=== PATIENT | male | born 1950 | race Caucasian/White ===

== ENCOUNTER 2016-11-04 15:13 | Emergency (ER) | payer MEDICARE, OTHER ==
[~2016-11-04] VITALS: Ht 170.2 cm; Wt 110.2 kg
[2016-11-04] MEDS ORDERED: SOD CHLORIDE 0.9% 1,000 ML IV STA (15:30)
[2016-11-04] MEDS ORDERED: ASPIRIN 300 MG SUPP PR STA (15:30)
[2016-11-04 15:40] VITALS: Ht 170.2 cm; Wt 110.2 kg
[2016-11-04 15:41] LABS: ADD SCAN DIFF NO
[2016-11-04 15:45] LABS: BASOPHILS % 0.3 % (0.0-2.0); EOSINOPHILS # 0.1 10^3/ul (0.0-0.5); EOSINOPHILS % 0.4 % (0.0-7.0); HEMATOCRIT 42.4 % (42.0-52.0); HEMOGLOBIN 14.1 g/dl (14.0-18.0); LYMPHOCYTES # 2.1 10^3/ul (0.8-2.9); LYMPHOCYTES % 17.7 % (15.0-51.0); MEAN CORPUSCULAR HEMOGLOBIN 29.2 pg (29.0-33.0); MEAN CORPUSCULAR HGB CONC 33.3 g/dl (32.0-37.0); MEAN CORPUSCULAR VOLUME 87.8 fl (82.0-101.0); MEAN PLATELET VOLUME 10.1 fl (7.4-10.4); MONOCYTE # 0.7 10^3/ul (0.3-0.9); MONOCYTES % 5.8 % (0.0-11.0); NEUTROPHIL # 8.8 10^3/ul (1.6-7.5); NEUTROPHILS % 75.4 % (39.0-77.0); PLATELET COUNT 316 10^3/UL (140-415); RED BLOOD COUNT 4.83 10^6/ul (4.70-6.10); RED CELL DISTRIBUTION WIDTH 13.6 % (11.5-14.5); WHITE BLOOD COUNT 11.7 10^3/ul (4.8-10.8)
--- NOTE | 2016-11-04 15:51 | RADRPT ---
PROCEDURE: CT Brain without contrast. CLINICAL INDICATION: Right-sided weakness. Code stroke. TECHNIQUE: A CT of the brain without contrast was performed utilizing axial sections from the skul l base through the vertex. The patient was scanned without intravenous contrast enhancement. Sagitta l and coronal reformatted images were obtained using the data from the axial images. Total exam DLP is 720.23 mGy-cm. CTDIvol is 43.48 mGy. One or more of the following dose reduction techniques we re used: Automated exposure control, adjustment of the mA and/or kV according to patient size, use o f iterative reconstruction technique. COMPARISON: None available FINDINGS: There is subtle decreased attenuation and loss of mccarthy and white matter differentiation in the left basal ganglia. The mccarthy and white matter differentiation is otherwise normal. There is mild enlargement of the ventricles and subarachnoid spaces consistent with atrophy. Vascul ar calcifications are present consistent with atherosclerosis. There is no intracranial hemorrhage or space-occupying lesion. There is no skull fracture or lytic lesion. IMPRESSION: 1. Subtle decreased attenuation and loss of mccarthy and white matter differentiation in the left basal ganglia. This may indicate acute infarct. Clinical correlation advised. Correlation with MRI with diffusion weighted images is advised. 2. Mild atrophy. 3. Atherosclerosis. Call report: A call report of the findings was made to Dr. Adamson on 11/04/2016 at 1550 hours. RPTAT: QQ .Anthony Stacy MD, Date Time Electronically viewed and signed by .Anthony Stacy MD, on 11/04/2016 15:51 .R/
[2016-11-04 16:00] LABS: INR 0.94; PARTIAL THROMBOPLASTIN TIME 31.8 Sec (25.0-35.0); PROTIME 12.6 Sec (12.2-14.2)
[2016-11-04] MEDS ORDERED: ALTEPLASE (tPA) 1 MG/ML BOLUS SYG IV* ONE (16:00)
[2016-11-04] MEDS ORDERED: SOD CHLORIDE 0.9% 50 ML IV ONE (16:00)
[2016-11-04] MEDS ORDERED: ALTEPLASE 100 MG INJ IV* ONE (16:00)
[2016-11-04 16:06] LABS: ALANINE AMINOTRANSFERASE 30 IU/L (13-69); ALBUMIN 4.7 g/dl (3.3-4.9); ALBUMIN/GLOBULIN RATIO 1.42; ALKALINE PHOSPHATASE 92 IU/L (42-121); ANION GAP 12 (8-16); ASPARTATE AMINO TRANSFERASE 16 IU/L (15-46); BILIRUBIN,INDIRECT 0.6 mg/dl (0-1.1); BILIRUBIN,TOTAL 0.6 mg/dl (0.2-1.3); BLOOD UREA NITROGEN 14 mg/dl (7-20); CALCIUM 9.4 mg/dl (8.4-10.2); CARBON DIOXIDE 21 mmol/L (21-31); CHLORIDE 110 mmol/L (97-110); CREATININE 0.85 mg/dl (0.61-1.24); GLUCOSE 121 mg/dl (70-220); POTASSIUM 3.8 mmol/L (3.5-5.1); SODIUM 139 mmol/L (135-144)
[2016-11-04 16:24] LABS: TROPONIN-I < 0.012 ng/ml (0.00-0.12)
[2016-11-04] MEDS ORDERED: IOHEXOL 100 ML ONE (17:05)
[2016-11-04] MEDS ORDERED: IOHEXOL 350MG/ML 50 ML BTL ONE (17:05)
[2016-11-04] MEDS ORDERED: SOD CHLORIDE 0.9% 100 ML ONE (17:05)
--- NOTE | 2016-11-04 17:25 | ERA ---
ER Documentation Chief Complaint Date/Time DATE: 11/04/16 TIME: 17:10 Chief Complaint PERIOD OF ALTERED MENTAL STATUS PER DAUGHTER AFTER SOME ETOH, NO NEURO DEF HPI 66-year-old man brought in by EMS for abrupt onset dysarthria beginning about 45 minutes prior to arrival. The episode was witnessed by his friends who know him very well, it seems he also developed a right facial asymmetry and generalized obtundation but did not lose consciousness. He has no history of similar episodes, no vomiting, no chest pain or shortness of breath, no headache or blurry vision. His friends immediately called family members and EMS was contacted and transported here immediately. Upon arrival blood sugar was normal, and patient had continued symptoms. He has a history of hypertension and tobacco smoke. ROS All systems reviewed and are negative except as per history of present illness. Medications Home Meds No Active Prescriptions or Reported Meds Allergies Allergies: Coded Allergies: No Known Allergy (Unverified , 11/04/16) PMhx/Soc Obesity, hypertension, tobacco smoke History of Surgery: Yes (APPY) Anesthesia Reaction: No Hx Neurological Disorder: No Hx Respiratory Disorders: No Hx Cardiac Disorders: No Hx Psychiatric Problems: No Hx Miscellaneous Medical Probl: Yes (SHINGLES) Hx Alcohol Use: Yes (OCCASIONAL) Hx Substance Use: No Hx Tobacco Use: Yes (1 PACK/DAY) Smoking Status: Current every day smoker FmHx Family History: No diabetes Physical Exam Vitals Vital Signs Date Time Temp Pulse Resp B/P Pulse Ox O2 Delivery O2 Flow Rate FiO2 11/04/16 18:15 69 20 143/76 96 11/04/16 18:00 68 18 127/65 98 11/04/16 17:45 98.0 68 21 121/71 97 Nasal Cannula 2.0 11/04/16 17:45 67 16 127/71 98 11/04/16 17:30 67 22 135/87 95 11/04/16 17:30 98.6 65 19 125/70 98 Nasal Cannula 2.0 11/04/16 17:15 78 20 111/78 98 11/04/16 17:15 98.8 75 20 111/78 98 Nasal Cannula 2.0 11/04/16 17:00 72 21 110/68 96 11/04/16 17:00 98.6 62 21 110/68 96 11/04/16 16:45 98.7 68 18 123/66 97 Nasal Cannula 2.0 11/04/16 16:45 67 22 123/66 97 11/04/16 16:30 66 22 125/73 96 11/04/16 15:45 Nasal Cannula 2 11/04/16 15:19 98.8 77 21 121/77 95 Physical Exam GENERAL: Well-developed, well-nourished, generalized obtundation HEENT: Moist mucous membranes, pink conjunctiva, no cervical spine tenderness or step-off deformities, no goiter, no jaundice or icterus, extraocular movements intact without pain. No submandibular induration, and no pharyngeal erythema NEURO: Patient is obtunded, answers simple questions and follow simple commands he has right facial weakness and asymmetrical compared to the left, he has expressive dysarthria and aphasia, pupils equal round reactive to light, extraocular movements intact without difficulty, no nystagmus, no cerebellar signs, no pronator drift CARDIAC: Regular rate and rhythm, no murmurs rubs or gallops LUNGS: Clear bilaterally no wheezing crackles or stridor ABDOMEN: Soft nontender, no guarding, no rigidity, no rebound, no psoas sign no obturator sign. Normoactive bowel sounds SKIN: Warm and dry to touch, no abrasions, contusions, or hematomas, no lacerations, no ecchymosis, no target lesions, and without ulcers EXTREMITIES: No clubbing cyanosis or edema, calves are bilaterally symmetrical, no Homans sign, no popliteal cord sign. Distal pulses equal and bilateral PSYCH: Normal affect without agitation or irritability Result Diagram: 11/04/16 1540 11/04/16 1540 Results 24 hrs Laboratory Tests Test 11/04/16 15:32 11/04/16 15:40 Bedside Glucose 121mg/dL White Blood Count 11.710^3/ul Red Blood Count 4.8310^6/ul Hemoglobin 14.1g/dl Hematocrit 42.4% Mean Corpuscular Volume 87.8fl Mean Corpuscular Hemoglobin 29.2pg Mean Corpuscular Hemoglobin Concent 33.3g/dl Red Cell Distribution Width 13.6% Platelet Count 19088^3/UL Mean Platelet Volume 10.1fl Neutrophils % 75.4% Lymphocytes % 17.7% Monocytes % 5.8% Eosinophils % 0.4% Basophils % 0.3% Nucleated Red Blood Cells % 0.0/100WBC Neutrophils # 8.810^3/ul Lymphocytes # 2.110^3/ul Monocytes # 0.710^3/ul Eosinophils # 0.110^3/ul Basophils # 0.010^3/ul Nucleated Red Blood Cells # 0.010^3/ul Prothrombin Time 12.6Sec Prothrombin Time Ratio 1.0 INR International Normalized Ratio 0.94 Activated Partial Thromboplast Time 31.8Sec Sodium Level 139mmol/L Potassium Level 3.8mmol/L Chloride Level 110mmol/L Carbon Dioxide Level 21mmol/L Anion Gap 12 Blood Urea Nitrogen 14mg/dl Creatinine 0.85mg/dl Glucose Level 121mg/dl Hemoglobin A1c 5.9% Calcium Level 9.4mg/dl Total Bilirubin 0.6mg/dl Direct Bilirubin 0.00mg/dl Indirect Bilirubin 0.6mg/dl Aspartate Amino Transf (AST/SGOT) 16IU/L Alanine Aminotransferase (ALT/SGPT) 30IU/L Alkaline Phosphatase 92IU/L Troponin I < 0.012ng/ml Total Protein 8.0g/dl Albumin 4.7g/dl Globulin 3.30g/dl Albumin/Globulin Ratio 1.42 Ethyl Alcohol Level < 10.0mg/dl Current Medications Medications (Trade) Dose Ordered Sig/Hernando Route PRN Reason Start Time Stop Time Status Last Admin Dose Admin Sodium Chloride (NS) 1,000 ml @ 1,000 mls/hr Q1H STAT IV 11/04/16 15:30 11/04/16 16:29 DC 11/04/16 16:40 Aspirin (Aspirin) 300 mg ONCE STAT MA 11/04/16 15:30 11/04/16 15:32 DC 11/04/16 16:20 Alteplase, Recombinant (Activase) 8.6 mg BOLUS OVER 1 MIN ONCE IV* 11/04/16 16:00 11/04/16 16:01 DC 11/04/16 16:29 Alteplase, Recombinant 77 mg 77 mg ISCHEMIC STROKE ONCE IV* 11/04/16 16:00 11/04/16 16:01 DC 11/04/16 16:31 Sodium Chloride (NS) 50 ml @ 0 mls/hr FLUSH AFTER TPA ONCE IV 11/04/16 16:00 11/04/16 16:01 DC 11/04/16 17:30 IV Flush 10 ml 10 ml STK-MED ONCE .ROUTE 11/04/16 17:05 11/04/16 17:06 DC 11/04/16 17:38 Sodium Chloride 100 ml @ ud STK-MED ONCE .ROUTE 11/04/16 17:05 7 17:06 DC 11/04/16 17:38 Iohexol (Omnipaque) 100 ml @ ud STK-MED ONCE .ROUTE 11/04/16 17:05 11/04/16 17:06 DC 11/04/16 17:38 Iohexol (Omnipaque 350mg/ ml) 50 ml STK-MED ONCE .ROUTE 11/04/16 17:05 11/04/16 17:06 DC 11/04/16 17:38 Procedures/MDM IV line was established patient was placed on technical stenographer rhythm strip revealed a sinus rhythm at about 70 bpm with upright P and T waves. Patient was afebrile. Blood sugar was normal. Immediate code stroke was called. CT scan of the brain was performed revealing a possible acute infarct of the left basal ganglia consistent with his symptoms. Tele-neurologist was contacted and she evaluated the patient at the bedside. Her assessment was for definitive TPA treatment and possible transfer to a center with neuro interventional services. Her calculated NIHSS score was 2 for speech difficulty. My NIHSS score is 5, 1 for facial asymmetry, 2 points for aphasia and dysarthria , and 1 point for generalized decreased level of consciousness, and 1 for facial asymmetry. Patient was immediately administered TPA given his overall presentation and symptomatology as well as his CT scan findings. I spoke to the family at length regarding the risks and benefits of TPA, they thought about the decision and also discussed the risks and benefits of TPA separately with a tele-neurologist. They ultimately agreed to have TPA treatment, as did the patient, although we were ready to administer TPA 50 minutes after arrival the patient and his family required about 20 minutes to discuss the risks and benefits and make her decision. Patient also received aspirin 300 mg per rectum for neuroprotective measures. Bedside swallow study was performed. One AP view of the chest performed, read by me reveals no acute infiltrates, normal mediastinum, sharp costophrenic and cardiac borders, no air under the diaphragm. Otherwise unremarkable chest x-ray. CBC and electrolytes were normal, liver function tests normal, troponin was negative. Alcohol level was negative. EKG performed, read by me: 73 bpm, normal sinus rhythm, normal axis, no acute ST segment changes, narrow QRS complex, with good R-wave progression in precordial leads. CTA cerebrum and neck was performed to rule out acute ischemic pathology. Imaging revealed acute focal stenosis to the left internal carotid artery and occlusion of the left MCA. Please refer to radiologist dictation for full report. I spoke to [facility] stroke transfer center regarding this patient's presentation, symptomatology, NIH stroke scale score, and CT scan findings. They recommended emergent transfer for continued neurologic care and possible intervention, although unlikely. Family agreed to this transfer. [facility] agreed to facilitate the transfer. Neurologic critical Care: Time: 37 minutes, this was time separate from other billable procedures. Treatments/Evaluations: Close monitoring and treatment of unstable vital signs, cardiorespiratory, and neurologic status, while maintaining tight balance of fluid, respiratory, and cardiac interventions. 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
--- NOTE | 2016-11-04 17:30 | RADRPT ---
PROCEDURE: Chest Radiograph. CLINICAL INDICATION: Stroke TECHNIQUE: Single frontal chest radiograph. COMPARISON: None available FINDINGS: The cardiomediastinal silhouette is within normal limits. There is mild bibasilar atelectasis. No i nfiltrate or effusion is seen. The bones are intact. IMPRESSION: 1. No evidence of acute cardiopulmonary disease. 2. Mild bibasilar atelectasis. RPTAT: HJBF .Chon Ulloa MD, MD Date Time Electronically viewed and signed by .Chon Ulloa MD, on 11/04/2016 17:30 .B/
[2016-11-04 17:45] VITALS: BP 121/71; PULSE 68; RESP 21; TEMP 98
--- NOTE | 2016-11-04 18:05 | STROKE ---
Date/Time of Note Date/Time of Note DATE: 11/04/16 TIME: 16:26 Patient Information General Patient location: emergency Arrival Date Age 66 Gender male Weight 95 kg POC Glucose Glucose Result Bedside Glucose - 72 Hours Test 11/04/16 15:32 Bedside Glucose 121mg/dL (70-220) Vital Signs Vital Signs Vital Signs Date Time Temp Pulse Resp B/P Pulse Ox O2 Delivery O2 Flow Rate FiO2 11/04/16 15:45 Nasal Cannula 2 11/04/16 15:19 98.8 77 21 121/77 95 Patient History Current Medications Allergies: Coded Allergies: No Known Allergy (Unverified , 11/04/16) Labs Hematology Labs Hematology Test 11/04/16 15:40 White Blood Count 11.710^3/ul (4.8-10.8) Red Blood Count 4.8310^6/ul (4.70-6.10) Hemoglobin 14.1g/dl (14.0-18.0) Hematocrit 42.4% (42.0-52.0) Mean Corpuscular Volume 87.8fl (82.0-101.0) Mean Corpuscular Hemoglobin 29.2pg (29.0-33.0) Mean Corpuscular Hemoglobin Concent 33.3g/dl (32.0-37.0) Red Cell Distribution Width 13.6% (11.5-14.5) Platelet Count 77047^3/UL (140-415) Mean Platelet Volume 10.1fl (7.4-10.4) Neutrophils % 75.4% (39.0-77.0) Lymphocytes % 17.7% (15.0-51.0) Monocytes % 5.8% (0.0-11.0) Eosinophils % 0.4% (0.0-7.0) Basophils % 0.3% (0.0-2.0) Nucleated Red Blood Cells % 0.0/100WBC (0.0-0.0) Neutrophils # 8.810^3/ul (1.6-7.5) Lymphocytes # 2.110^3/ul (0.8-2.9) Monocytes # 0.710^3/ul (0.3-0.9) Eosinophils # 0.110^3/ul (0.0-0.5) Basophils # 0.010^3/ul (0.0-0.1) Nucleated Red Blood Cells # 0.010^3/ul (0.0-0.0) Chemistry Labs Chemistry Test 11/04/16 15:32 11/04/16 15:40 Bedside Glucose 121mg/dL (70-220) Sodium Level 139mmol/L (135-144) Potassium Level 3.8mmol/L (3.5-5.1) Chloride Level 110mmol/L (97-110) Carbon Dioxide Level 21mmol/L (21-31) Anion Gap 12 (8-16) Blood Urea Nitrogen 14mg/dl (7-20) Creatinine 0.85mg/dl (0.61-1.24) Glucose Level 121mg/dl (70-220) Hemoglobin A1c 5.9% (0-5.9) Calcium Level 9.4mg/dl (8.4-10.2) Total Bilirubin 0.6mg/dl (0.2-1.3) Direct Bilirubin 0.00mg/dl (0.00-0.20) Indirect Bilirubin 0.6mg/dl (0-1.1) Aspartate Amino Transf (AST/SGOT) 16IU/L (15-46) Alanine Aminotransferase (ALT/SGPT) 30IU/L (13-69) Alkaline Phosphatase 92IU/L (42-121) Troponin I < 0.012ng/ml (0.00-0.12) Total Protein 8.0g/dl (6.1-8.1) Albumin 4.7g/dl (3.3-4.9) Globulin 3.30g/dl (1.3-3.2) Albumin/Globulin Ratio 1.42 Coagulation Labs: Coagulation Test 11/04/16 15:40 Prothrombin Time 12.6Sec (12.2-14.2) Prothrombin Time Ratio 1.0 INR International Normalized Ratio 0.94 Activated Partial Thromboplast Time 31.8Sec (25.0-35.0) History & Physical Patient History Notes Pt Hx Reviewed History of Present Illness 66yo M presents with acute onset speech difficulty since 3:15pm. Review of Systems Constitutional: no symptoms reported EENTM: no symptoms reported Respiratory: no symptoms reported Cardiovascular: no symptoms reported Gastrointestinal: no symptoms reported Genitourinary: no symptoms reported Musculoskeletal: no symptoms reported Skin: no symptoms reported Psychiatric/Neurological: no symptoms reported All Other Systems: Reviewed and Negative NIH Stroke Scale NIH Stroke Scale 1A - Level of Conciousness: 0 - Alert keenly [id number] LOC Questions: 2 - Answers no [id number] - LOC Commands: 0 - Performs both tasks2 - Best Gaze: 0 - Normal3 - Visual: 0 - No visual loss4 - Facial Palsy: 1 - Partial [id number] - Motor Arm - Left: 0 - No epldt4B - Motor Arm - Right: 0 - No ykjvn4D - Motor Leg - Left: 0 - No bystp8O - Motor Leg - Right: 0 - No drift7 - Limb Ataxia: 0 - Absent8 - Sensory: 0 - Normal9 - Best Language: 1- Mild to moderate aphasiaDysarthria: 1 - Mild to [id number] - Extinction and inattentio: 0 - No abnormalityTotal Score: 3 Date/Time Recorded DATE: 11/04/16 TIME: 16:26 Submitted By Diana Beasley t-PA Imaging Review Imaging Reviewed: Yes Date/Time Imaging Reviewed DATE: 11/04/16 TIME: 16:26 Imaging Findings mild hypodensity seen in left basal ganglia suggestive of early infarction t-PA Administration Recommendation: Yes Weight 95 kg t-PA Recommendation Date/Time 11/04/16 16:15 Recommedation submitted by Diana Beasley Recommendations Impression Diagnosis acute ischemic stroke of the left middle cerebral artery Recommendation 66yo M presents with acute onset speech difficulty. Neurological exam is notable for moderate aphasia, moderate dysarthria, and mild right facial droop. I believe the patient is having an acute ischemic stroke of the left middle cerebral artery. I reviewed the risks and benefits of IV TPA in detail with the patient and his family and they are agreeable to my recommendation for IV TPA. I recommend post- TPA order sets be followed. I recommend stat CTA of the head and neck to determine if the patient is a neurointerventional candidate. I recommend further workup include MRI Brain without gadolinium and transthoracic echocardiogram. At 17:39 I reviewed the CTA images, report not yet available. I called and informed Dr. Adamson that patient appears to have an M1 occlusion within the left MCA and I recommend transfer for neurointerventional treatment. Post t-PA Order recommendation: Document q15 min vitals Document q15 min neuro checks Document q15 min bleeding checks Refer to t-PA Order Sets Diagnostic Labs: Lipid Proile Hgb A1C CMP CBC w/Diff Coags Therapy: Physical Therapy Speech Therapy Occupational Therapy Misc. Recommendations: Bedside Swallow Evaluation Pnumatic Compression Devices Avoid Breen Catheter Stroke Education Smoking Education DIANA BEASLEY Nov 04, 2016 16:46
--- NOTE | 2016-11-04 18:13 | RADRPT ---
PROCEDURE: CTA Head and Neck. CLINICAL INDICATION: Stroke, focal neurologic deficit TECHNIQUE: Continues axial 0.63 mm sections were obtained through the head and neck with the use o f 115 cc of Omnipaque 350 nonionic intravenous contrast material. Coronal and sagittal as well as m aximal intensity projection reformations were obtained. 3-D re-formations were performed as well. T he images were reviewed on a PACS workstation. The calculated radiation dose measures 799 mGy centim eters. The CTDI measures 29 mGy COMPARISON: No prior studies are available for comparison. FINDINGS: NECK: The aortic arch displays mild to moderate partially calcified plaque. The origins of the great vesse ls are intact. The right brachiocephalic artery is within normal limits. The right common carotid artery is unremarkable. The right carotid bifurcation demonstrates moderat e partially calcified plaque. There is 30% stenosis of the proximal right internal carotid artery.. The remainder of the right internal carotid artery is unremarkable, without focal stenosis or dila tation. The left common carotid artery is unremarkable. There is prominent plaque at the left carotid bifurc ation with occlusion just past the origin of the left internal carotid artery, which non opacificati on extending through to the cavernous left ICA. The bilateral vertebral arteries are identified, without stenosis or occlusion. HEAD: The petrous right internal carotid artery appears normally patent. The cavernous and supraclinoid r ight internal carotid artery segments demonstrate moderate calcification, and mild areas of vessel n arrowing.. The right middle cerebral artery appears normally patent. There is a partially azygos ap pearing configuration of the anterior cerebral artery, predominant supplied from the right side. There is opacification of the left petrous internal carotid artery. There is partial reconstitution through the left cavernous and supraclinoid internal carotid artery. There is thrombus seen at the level of the ICA terminus with associated occlusion of the left middle cerebral artery. There appe ars to be partial reconstitution of the distal left middle cerebral artery M1 segment and M2 arterie s. There is a left callosal marginal artery supplied through the left TONIO A1 segment, with possible diminished opacification. The anterior communicating artery is unremarkable. A left posterior communicating artery is normall y patent. A right posterior communicating artery is not well seen, likely small in size or hypoplas tic. There is no evidence of aneurysm or vascular malformation involving the anterior circulation. The intracranial vertebral arteries appear unremarkable. The basilar artery appears within normal l imits. . The superior cerebellar arteries are unremarkable. Bilateral posterior cerebral arteries are normally patent. There is no aneurysm or vascular malformation involving the posterior circulation.. There appears to be early hypodense changes in the left insula, frontal and parietal boyd radiata, and caudate head, consistent with early infarct involvement. IMPRESSION: 1. Occlusion of the left internal carotid artery, approximately 5 mm past the carotid bifurcation. There is non- opacification of the left ICA extending to the intracranial segment. 2. There is partial reconstitution of the left internal carotid artery at the level of the cavernou s segment. There is thrombus seen at the ICA terminus, with occlusion of the left middle cerebral a rtery at its origin. There is partial reconstitution of the distal left MCA M1 segment and M2 branc h arteries. There is possible diminished opacification of a left anterior cerebral artery callosal marginal artery. 3. Moderate plaque at the right carotid bifurcation with 30% stenosis of the proximal right ICA. 4. Normal patency of the bilateral vertebral arteries. 5. Moderate calcification of the right cavernous and supraclinoid internal carotid artery, with mil d associated vessel narrowing. 6. There appears to be early hypodense changes in the left MCA territory , including the left insul a, frontal and parietal boyd radiata, and caudate head. This appears consistent with early infarct involvement. Measurements of the cervical internal carotid artery stenosis were peformed according to NASCET surajt kentrell. Call report with critical findings made to Dr. Jacobsen RPTAT: AAEE .Jose Drake MD, MD Date Time Electronically viewed and signed by .Jose Drake MD, MD on 11/04/2016 18:12 .T/
--- NOTE | 2016-11-04 18:14 | RADRPT ---
PROCEDURE: CTA Head and Neck. CLINICAL INDICATION: Stroke, focal neurologic deficit TECHNIQUE: Continues axial 0.63 mm sections were obtained through the head and neck with the use of 115 cc of Omnipaque 350 nonionic intravenous contrast material. Coronal and sagittal as well as maxi mal intensity projection reformations were obtained. 3-D re-formations were performed as well. The i mages were reviewed on a PACS workstation. The calculated radiation dose measures 799 mGy centimeter s. The CTDI measures 29 mGy COMPARISON: No prior studies are available for comparison. FINDINGS: NECK: The aortic arch displays mild to moderate partially calcified plaque. The origins of the great vesse ls are intact. The right brachiocephalic artery is within normal limits. The right common carotid artery is unremarkable. The right carotid bifurcation demonstrates moderate partially calcified plaque. There is 30% stenosis of the proximal right internal carotid artery.. T he remainder of the right internal carotid artery is unremarkable, without focal stenosis or dilatat ion. The left common carotid artery is unremarkable. There is prominent plaque at the left carotid bifurc ation with occlusion just past the origin of the left internal carotid artery, which non opacificati on extending through to the cavernous left ICA. The bilateral vertebral arteries are identified, without stenosis or occlusion. HEAD: The petrous right internal carotid artery appears normally patent. The cavernous and supraclinoid ri ght internal carotid artery segments demonstrate moderate calcification, and mild areas of vessel na rrowing.. The right middle cerebral artery appears normally patent. There is a partially azygos appe aring configuration of the anterior cerebral artery, predominant supplied from the right side. There is opacification of the left petrous internal carotid artery. There is partial reconstitution through the left cavernous and supraclinoid internal carotid artery. There is thrombus seen at the l evel of the ICA terminus with associated occlusion of the left middle cerebral artery. There appears to be partial reconstitution of the distal left middle cerebral artery M1 segment and M2 arteries. There is a left callosal marginal artery supplied through the left TONIO A1 segment, with possible dim inished opacification. The anterior communicating artery is unremarkable. A left posterior communicating artery is normally patent. A right posterior communicating artery is not well seen, likely small in size or hypoplasti c. There is no evidence of aneurysm or vascular malformation involving the anterior circulation. The intracranial vertebral arteries appear unremarkable. The basilar artery appears within normal li mits. . The superior cerebellar arteries are unremarkable. Bilateral posterior cerebral arteries are normally patent. There is no aneurysm or vascular malformation involving the posterior circulation.. There appears to be early hypodense changes in the left insula, frontal and parietal boyd radiata, and caudate head, consistent with early infarct involvement. IMPRESSION: 1. Occlusion of the left internal carotid artery, approximately 5 mm past the carotid bifurcation. T here is non- opacification of the left ICA extending to the intracranial segment. 2. There is partial reconstitution of the left internal carotid artery at the level of the cavernous segment. There is thrombus seen at the ICA terminus, with occlusion of the left middle cerebral art mark at its origin. There is partial reconstitution of the distal left MCA M1 segment and M2 branch a rteries. There is possible diminished opacification of a left anterior cerebral artery callosal hemal inal artery. 3. Moderate plaque at the right carotid bifurcation with 30% stenosis of the proximal right ICA. 4. Normal patency of the bilateral vertebral arteries. 5. Moderate calcification of the right cavernous and supraclinoid internal carotid artery, with mild associated vessel narrowing. 6. There appears to be early hypodense changes in the left MCA territory , including the left insula , frontal and parietal boyd radiata, and caudate head. This appears consistent with early infarct involvement. Measurements of the cervical internal carotid artery stenosis were peformed according to NASCET sahra pfeiffer. Call report with critical findings made to Dr. Jacobsen RPTAT: AAEE .Jose Drake MD, MD Date Time Electronically viewed and signed by .Jose Drake MD, MD on 11/04/2016 18:13 .T/
== END 2016-11-04 18:28 | disposition short-term general hospital (02) ==
LOC: E/R 15:13
DX: R40.4 Transient alteration of awareness (principal); I63.9 Cerebral infarction, unspecified; R47.01 Aphasia; I65.22 Occlusion and stenosis of left carotid artery; I10 Essential (primary) hypertension; F17.210 Nicotine dependence, cigarettes, uncomplicated; E66.9 Obesity, unspecified; Z68.38 Body mass index [BMI] 38.0-38.9, adult
CPT/HCPCS: 36415; 37195; 70450; 70496; 70498; 71010; 80053; 80306; 82962; 83036; 84484; 85025; 85610; 85730; 93005; 99291; J2997; J7030; Q9967